=== PATIENT | female | born 1975 | race Caucasian/White ===

== ENCOUNTER 2017-11-28 11:42 | Emergency (ER) | payer MEDICAID, SELFPAY ==
[2017-11-28 11:43] VITALS: BP 159/97; PULSE 98; RESP 22; TEMP 36.6; O2SAT 98; BMI 38.3
--- NOTE | 2017-11-28 13:22 | EKG12_ITS ---
Test Reason : CP Blood Pressure : / mmHG Vent. Rate : 074 BPM Atrial Rate : 074 BPM P-R Int : 164 ms QRS Dur : 086 ms QT Int : 388 ms P-R-T Axes : 055 057 055 degrees QTc Int : 430 ms Normal sinus rhythm Normal ECG Confirmed by ROWDY JONES, CARLTON ([id number]), photo editor TAMMY LUNSFORD ([id number]) on 12/03/2017 3:52:04 PM Referred By: MARIANELA Confirmed By:CARLTON RENO MD
--- NOTE | 2017-11-28 13:22 | RAD_ITS ---
STUDY: X-RAY CHEST REASON FOR EXAM: Female, 42 years old. Chest pain. Shortness of breath. TECHNIQUE: PA and lateral views of the chest. COMPARISON: August 23, 2016 FINDINGS: The lungs are clear and expanded. There is no demonstrated pleural abnormality. Normal size heart. Normal mediastinum and vinay. Normal visualized pulmonary arteries. Normal visualized aortic arch and descending thoracic aorta. Normal visualized thoracic spine. Normal visualized ribs, clavicles, and shoulders. There are surgical clips in the right upper abdomen. RAD/Chest PA and Lateral IMPRESSION: Normal x-ray examination of the chest. Electronically Signed: Carmelo Correa MD at 15:15 EDT , Service support ,
--- NOTE | 2017-11-28 13:27 | ED.DCSUM_ITS ---
- ER Visit Summary Date of Service: 11/28/17 Chief Complaint: Left-sided chest pain with productive cough of sputum History of Present Illness: The patient is a 42 F chest pain. She does have production of sputum but really not complaining much of a cough. No history of DVT or PE. Her sisters had a prior PE. She is on estrogen therapy. She is a smoker. She has had no recent travel, surgery or immobilization. She has no known cardiac disease. No recent exertional dyspnea. No leg pain or swelling. The pain radiates straight through to her back on the left chest. Physical Examination: Middle-aged female. Vital signs are stable. She is afebrile. Her pulse ox is 90% room air no signs of hypoxia. She is not tachycardic. H EENT exam unremarkable. Neck nontender no lymphadenopathy. Lungs coarse breath sounds. Dry cough. No rales or rhonchi. Heart regular rhythm rate about 90 no murmur. Chest wall nontender. Abdomen soft nontender. Normal bowel sounds no peritoneal signs. She is moving all 4 extremities. They are neurovascularly intact. Calves are nontender. No edema or cords. Neurologically she is awake and alert. There is no reproducible back or chest wall tenderness. Test Results: EKG shows a sinus rhythm rate is 70 signs of ischemia. No S1, every 3 or T3. Chest x-ray no acute abnormality. Read both by myself and radiologist. CBC normal. White count 8. Normal hemoglobin. Electrolytes normal. Normal creatinine and gap. Troponin normal. D-dimer is elevated 1.39. Due to the elevated d-dimer and her chest pain and her risk factors a CTA of the chest was obtained. This showed no PE nor any dissection. Nor any other acute abnormality. Read by the radiologist. Reviewed by me. Emergency Department Course and Treatment: Atypical chest pain is not reproducible. This could be as simple as a viral URI. However with her pain and her family history she is going to undergo a cardiac workup and also evaluation for possible blood clot. Treatment Plan: Patient is doing better after the IV Toradol. She will be discharged home. Treated as a viral bronchitis with pleurisy. Prednisone as anti-inflammatory should and also to help her with wheezing. Disposition: Discharge Impression: Acute left-sided chest pain secondary to pleurisy and viral bronchitis This note was generated with [employer] software. It may contain incorrect words, spelling, and punctuation that were not noted in review of the chart prior to signing ED Disposition - Plan for ED Patient: Chief Complaint: Cough Referrals: Care Physician,No Primary [NON-STAFF] -
[2017-11-28] MEDS: Ketorolac 30 MG/ML Syringe IV (13:47)
[2017-11-28 13:53] VITALS: O2SAT 99
[2017-11-28 13:55] LABS: Absolute Lymphocyte Count 2.68 X10^3/ul (0.83-4.51); Absolute Neutrophil Count 4.7 X10^3/uL (2.0-7.7); Basophil# 0.02 X10^3/uL; Basophil% 0.2 % (0-1); Eosinophil# 0.14 X10^3/uL; Eosinophils% 1.7 % (0-5); Hematocrit 42.2 % (37-47); Hemoglobin 14.4 g/dl (12.0-15.0); Lymphocyte # 2.68 X10^3/ul (4.0); Mean Corp Hgb Conc 34.1 g/gl (32-36); Mean Corpuscular Hgb 30.8 pg (27.0-32.0); Mean Corpuscular Volume 90.4 fL (81-99); Monocyte# 0.59 X10^3/uL; Monocyte% 7.3 % (0-10); Neutrophil # 4.68 X10^3/uL (2.7-7.7); Neutrophil % 57.6 % (47-70); Platelet Count 123 K/mm3 (150-450); RBC Distribution Width CV 12.7 % (11.6-14.6); RBC Distribution Width SD 41.9 fl (35.1-43.9); Red Blood Count 4.67 M/mm3 (4.2-5.4); White Blood Count 8.1 K/mm3 (4.4-11.0)
[2017-11-28 13:56] LABS: POSITIVE COUNT NO; POSITIVE DIFFERENTIAL NO; POSITIVE MORPHOLOGY NO
[2017-11-28 14:09] VITALS: BP 110/68; PULSE 69; RESP 14; O2SAT 100
[2017-11-28 14:14] LABS: Anion Gap 5 (5-15); BUN 10 mg/dL (7-18); BUN/Creat Ratio 14.3 RATIO (10-20); Calcium,Total 8.6 mg/dL (8.5-10.1); Chloride 104 mmol/L (98-107); EST Glomerular Filtration Rate 97 mL/min (>60); Est Glom Filt Rate - Afr Amer 118 mL/min (>60); Estimated Creatinine Clearance 100.77 ml/min; Glucose 85 mg/dL (74-106); Potassium 3.7 mmol/L (3.5-5.1); Sodium Level 137 mmol/L (136-145)
[2017-11-28 14:20] LABS: D-Dimer Quantitative (DVT/PE) 1.39 FEU/ug/m (0.27-0.49)
--- NOTE | 2017-11-28 14:22 | CT_ITS ---
STUDY: CTA CHEST REASON FOR EXAM: Female, 42 years old. Chest pain. Shortness of breath. Elevated d-dimer RADIATION DOSAGE (If Supplied By Facility): CTDIvol = ( 17.79 ) mGy, DLP = ( 708.89 ) mGycm TECHNIQUE: The examination was performed with the intravenous administration of 100 ml of Isovue 370 contrast material. Post-processing of the angiographic images was performed, with multiplanar reformation and 3D reconstruction. Individualized dose optimization techniques were used for this CT. COMPARISON: Chest x-ray FINDINGS: Normal enhancement of the main pulmonary artery and right and left pulmonary arteries. There is limited enhancement of the bilateral peripheral pulmonary arteries. There is no demonstrated pulmonary embolism. Normal thoracic aorta and visualized great vessels. There is no demonstrated aortic dissection. There are calcifications of the coronary arteries. Normal mediastinum. Normal hilar regions. Normal visualized trachea and bronchi. The lungs are well expanded. Normal pulmonary parenchyma. Normal pleura. Normal chest wall structures. Normal osseous structures. There are surgical clips in the gallbladder fossa consistent with a prior cholecystectomy. There is splenomegaly. CT/CTA Chest W/WO Contrast IMPRESSION: CTA chest examination, without a demonstrated pulmonary embolism or arterial dissection. No focal infiltrate. Splenomegaly. Electronically Signed: Carmelo Correa MD at 15:24 EDT , Service support ,
--- NOTE | 2017-11-28 15:41 | ED.DEP ---
ED Disposition - Plan for ED Patient: Disposition: Home or Assisted Living Chief Complaint: Cough Instructions: Acute Bronchitis, ED Chest Pain Pleurisy Prescriptions: Prednisone [Deltasone] 40 mg PO DAILY 7 Days tab Referrals: Care Physician,No Primary [NON-STAFF] - Additional Instructions: You have a bronchitis with inflammation of the lung lining the cause of the pain. Currently on prednisone which will decrease the inflammation and improve the pain. ER cardiac workup was normal. The CAT scan of your chest showed no abnormalities and no blood clots.
[2017-11-28 16:03] VITALS: BP 125/83; PULSE 63; RESP 18; O2SAT 99
--- NOTE | 2017-11-29 10:07 | CM.ED ---
ED CALLBACK: Follow-up call to patient. Voicemail message states this phone number belongs to a different name than patient's.
== END 2017-11-28 16:04 | disposition home or self-care (01) ==
PROVIDERS: Emergency Provider Emergency Medicine; Family Provider Internal Medicine; PCP Internal Medicine
DX: J20.8 Acute bronchitis due to other specified organisms (principal); R09.1 Pleurisy; R74.9 Abnormal serum enzyme level, unspecified; K21.9 Gastro-esophageal reflux disease without esophagitis; Z72.0 Tobacco use; Z79.890 Hormone replacement therapy; Z79.899 Other long term (current) drug therapy
CPT/HCPCS: 71046; 71275; 80048; 84484; 85025; 85379; 93005; 96374; 99284; Q9967; A4216

== ENCOUNTER 2017-12-21 10:06 | Emergency (ER) | payer MEDICAID, SELFPAY ==
[2017-12-21 10:07] VITALS: BP 144/111; PULSE 90; RESP 18; TEMP 36; O2SAT 98; BMI 41.1
--- NOTE | 2017-12-21 10:56 | RAD_ITS ---
STUDY: X-RAY - LEFT KNEE REASON FOR EXAM: Female, 42 years old. Pain and swelling. No known injury. TECHNIQUE: 4 view(s) of the knee. COMPARISON: None. FINDINGS: Normal visualized distal femur. Normal visualized proximal tibia and fibula. Normal proximal tibiofibular articulation. There is mild degenerative arthrosis of the medial femorotibial compartment. Normal lateral femorotibial compartment. Normal patellofemoral articulation. Small joint effusion. RAD/Knee 4 or More Views IMPRESSION: Degenerative arthrosis. Small joint effusion. Electronically Signed: Gregory Hernandez MD at 11:16 EDT Tel [phone], Service support ,
--- NOTE | 2017-12-21 11:00 | ED.DCSUM_ITS ---
- ER Visit Summary Date of Service: 12/21/17 Chief Complaint: Left knee pain History of Present Illness: The patient is a [address] Hooks. She reports that she has left knee pain that began yesterday. She states that she has not worked for approximately 1 year and begin a new job at [employer] 2 weeks ago. 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 She does do some lifting with this. She has not been kneeling. She denies any other potential trauma. No fall or MVA. Patient reports that she has swelling in her left knee that began yesterday and is improved this morning after ibuprofen. She has an aching constant pain that is 7 out of 10 severity. She reports that sharp pain is 10 out of 10 with walking. On review of systems patient planes of a cough for the past 1-2 days that is nonproductive. She denies any fever or chills. No chest pain or shortness of breath. She denies any other complaints. Physical Examination: Vitals: Stable. Afebrile. General: Well-nourished and well-developed. Head: Normocephalic atraumatic. Neck: Supple, no lymphadenopathy. No JVD. Nontender. Cardiovascular: Regular rate and rhythm. No murmurs. Respiratory: No respiratory distress. Clear to auscultation bilaterally. Abdominal: Soft, nontender, nondistended, normal bowel sounds. No guarding, rebound, or peritoneal signs. Back: Nontender. Extremities: Mild diffuse tenderness palpation over her left knee that is worst on the medial side of this. She does have a moderate joint effusion. There is no overlying erythema or warmth to suggest a septic joint. She has good range of motion with minimal pain. She has no pain or ligamentous instability with anterior/posterior drawer or medial/lateral stress. There is no swelling of her leg distally. No calf tenderness. Skin: Normal color, no rash. Neurologic: Alert and oriented ?3. Cranial nerves II through XII are intact. Normal strength and sensation. Psych: Normal affect. Test Results: Left knee x-ray shows degenerative changes and a small joint effusion. Emergency Department Course and Treatment: Patient was treated with Tylenol. She refused stronger pain medications. She taken ibuprofen prior to arrival. Treatment Plan: Patient will be discharged with instructions to ice her knee and elevate her leg. Follow-up with Dr. Hooks and/or Dr. Wilson in 1 week if not improving. She instructed to use NSAIDs. Return to the emergency department for any worsening symptoms. Disposition: To home in improved and stable condition. Impression: 1. Left knee pain, acute. This note was generated with [employer] dictation software. It may contain incorrect words, spelling, and punctuation that were not noted in review of the chart prior to signing ED Disposition - Plan for ED Patient: Chief Complaint: Shortness of Breath Instructions: ED Meniscal Injury Knee Poss Referrals: Coty Hooks MD [Primary Care Provider] - 1 Week if not improving Jacky Wilson DO [STAFF PHYSICIAN] -
[2017-12-21] MEDS: Acetaminophen 500 MG Tablet 1000 MG PO (11:08)
[2017-12-21 11:58] VITALS: BP 130/90; PULSE 70; RESP 16; O2SAT 97
== END 2017-12-21 12:03 | disposition home or self-care (01) ==
LOC: ED 11:20
PROVIDERS: Emergency Provider Emergency Medicine; Family Provider Internal Medicine; PCP Internal Medicine
DX: M25.562 Pain in left knee (principal); M25.462 Effusion, left knee; R05 Cough; Z72.0 Tobacco use; Z79.899 Other long term (current) drug therapy
CPT/HCPCS: 73564; 99283

== ENCOUNTER 2018-02-17 08:15 | Emergency (ER) | payer MEDICAID, SELFPAY ==
[2018-02-17 08:17] VITALS: BP 123/95; PULSE 84; RESP 17; TEMP 36.7; O2SAT 98; BMI 39.0
--- NOTE | 2018-02-17 08:27 | RAD_ITS ---
STUDY: X-RAY CHEST REASON FOR EXAM: Female, 42 years old. Cough, congestion TECHNIQUE: PA and lateral views of the chest. COMPARISON: November 28, 2017 chest x-ray FINDINGS: The lungs are clear and expanded. There is no demonstrated pleural abnormality. Normal size heart. Normal mediastinum and vinay. Normal visualized pulmonary arteries. Normal visualized aortic arch and descending thoracic aorta. There is demineralization of the osseous structures. Normal visualized ribs, clavicles, and shoulders. There is no demonstrated abnormality of the visualized soft tissue structures of the upper abdomen. RAD/Chest PA and Lateral IMPRESSION: No demonstrated acute cardiopulmonary process. Electronically Signed: Barbara Benz MD at 9:55 EST Tel , Service support ,
--- NOTE | 2018-02-17 08:27 | EKG12_ITS ---
Test Reason : COUGH Blood Pressure : / mmHG Vent. Rate : 068 BPM Atrial Rate : 068 BPM P-R Int : 160 ms QRS Dur : 086 ms QT Int : 396 ms P-R-T Axes : 049 023 025 degrees QTc Int : 421 ms Normal sinus rhythm Possible Left atrial enlargement Borderline ECG Confirmed by IVAN JONES, BETY ([id number]), editor in chief TAMMY LUNSFORD ([id number]) on 02/20/2018 2:22:39 PM Referred By: YOLANDA Confirmed By:BETY LOVE MD
--- NOTE | 2018-02-17 08:31 | ED.DCSUM_ITS ---
- ER Visit Summary Date of Service: 02/17/18 Chief Complaint: Cough, abdominal pain History of Present Illness: The patient is a 42 F presents to the emergency department cough abdominal pain. The patient is a daily smoker. She states that she was diagnosed with bronchitis about a month ago. She feels that she never got over it. She does work outdoors. She states that she has had continued cough with productive sputum that is worsened over the past 2 or 3 days. She said pain in her right lower ribs into her right upper abdomen. She denies any nausea or vomiting. She denies any fevers or chills. She states at night, when she lays down, her cough gets worse. She has had productive sputum. She does continue to smoke. She does not think she is ever been diagnosed with COPD or asthma. Physical Examination: Vital signs reviewed General: Well-nourished, well-developed Head: Normocephalic, atraumatic Eyes: Pupils equal and reactive, extraocular muscles intact Neck, supple, no lymphadenopathy Heart: Regular rate and rhythm Respiratory: No distress, diminished with wheezing throughout Abdomen: Soft, mildly tender over the right lower lateral ribs, no definitive abdominal tenderness, nondistended, no peritoneal signs Back: Nontender Extremities: Nontender, no edema, no cords Skin: Normal color no rash Neuro: Alert and oriented, no focal or lateralizing deficits Test Results: [] Emergency Department Course and Treatment: The patient did have wheezing in all lung rosario. She was given nebulized breathing treatments, Toradol, and steroids. On reevaluation her symptoms are markedly improved. I did obtain screening labs which were relatively unremarkable. Her chest x-ray does not show any focal infiltrative process. The patient has had waxing and waning symptoms for a month. She does smoke and I do suspect she likely has underlying lung disease. She will be treated with doxycycline and prednisone. She was counseled on concerning symptoms and reasons to return. She will be discharged home. Treatment Plan: [] Disposition: Discharge Impression: 1. Acute bronchitis with bronchospasm This note was generated with [employer] software. It may contain incorrect words, spelling, and punctuation that were not noted in review of the chart prior to signing ED Disposition - Plan for ED Patient: Disposition: Home or Assisted Living Chief Complaint: Cough Instructions: ED Upper Resp Infec Abx Tx Prescriptions: Benzonatate [Tessalon Perle] 200 mg PO TID PRN PRN #20 cap PRN Reason: Cough RX: Prednisone [Deltasone] 40 mg PO DAILY #10 tab RX: Doxycycline 100 mg PO BID #20 cap Referrals: Coty Hooks MD [Primary Care Provider] -
[2018-02-17] MEDS: Ketorolac 30 MG/ML Syringe IV (08:41)
[2018-02-17] MEDS: MethylPREDNISolone 125 MG/2 ML Vial IV (08:41)
[2018-02-17] MEDS: 0.9% Normal Saline 1,000 ML 150 ML IV (08:41)
[2018-02-17] MEDS: Albuterol 2.5 MG/3 ML VIAL.NEB. INHALATION ×3 (08:44→08:45)
[2018-02-17] MEDS: Ipratropium/Albuterol Sulfate 3 ML AMPUL.NEB INHALATION (08:50)
[2018-02-17 08:51] VITALS: PULSE 75; RESP 16
[2018-02-17 08:56] LABS: Absolute Lymphocyte Count 2.64 X10^3/ul (0.83-4.51); Absolute Neutrophil Count 5.1 X10^3/uL (2.0-7.7); Basophil# 0.02 X10^3/uL; Basophil% 0.2 % (0-1); Eosinophil# 0.19 X10^3/uL; Eosinophils% 2.2 % (0-5); Hematocrit 43.6 % (37-47); Hemoglobin 14.6 g/dl (12.0-15.0); Lymphocyte # 2.64 X10^3/ul (4.0); Lymphocyte % 30.9 % (19-41); Mean Corp Hgb Conc 33.5 g/gl (32-36); Mean Corpuscular Volume 89.5 fL (81-99); Mean Platelet Vol. 11.3 fl (6.2-12.0); Monocyte# 0.55 X10^3/uL; Monocyte% 6.4 % (0-10); Neutrophil # 5.14 X10^3/uL (2.7-7.7); Neutrophil % 60.2 % (47-70); POSITIVE COUNT NO; POSITIVE DIFFERENTIAL NO; POSITIVE MORPHOLOGY NO; Platelet Count 122 K/mm3 (150-450); RBC Distribution Width CV 12.7 % (11.6-14.6); RBC Distribution Width SD 41.3 fl (35.1-43.9); Red Blood Count 4.87 M/mm3 (4.2-5.4); White Blood Count 8.6 K/mm3 (4.4-11.0)
[2018-02-17 09:30] LABS: AST(SGOT) 47 U/L (15-37); Alanine Aminotransfer ALT/SGPT 75 U/L (13-56); Albumin, Serum 3.7 g/dL (3.2-5.0); Alkaline Phosphatase 107 U/L (45-117); Anion Gap 5 (5-15); BUN 9 mg/dL (7-18); BUN/Creat Ratio 14.5 RATIO (10-20); Calcium,Total 8.5 mg/dL (8.5-10.1); Chloride 108 mmol/L (98-107); Creatinine, Serum 0.62 mg/dL (0.55-1.02); EST Glomerular Filtration Rate 112 mL/min (>60); Est Glom Filt Rate - Afr Amer 135 mL/min (>60); Estimated Creatinine Clearance 113.78 ml/min; Globulin 3.7 g/dL (2.2-4.2); Glucose 104 mg/dL (74-106); Potassium 3.9 mmol/L (3.5-5.1); Protein, Total 7.4 g/dL (6.4-8.2); Sodium Level 139 mmol/L (136-145)
[2018-02-17] MEDS: Benzonatate 100 MG Capsule 200 MG PO (09:44)
[2018-02-17] MEDS: Doxycycline 100 MG CAPSULE PO (09:44)
[2018-02-17 09:47] VITALS: BP 95/59; PULSE 92; RESP 16; O2SAT 97
== END 2018-02-17 09:49 | disposition home or self-care (01) ==
LOC: ED 08:31
PROVIDERS: Emergency Provider Emergency Medicine; Family Provider Internal Medicine; PCP Internal Medicine
DX: J20.9 Acute bronchitis, unspecified (principal); E66.9 Obesity, unspecified; K21.9 Gastro-esophageal reflux disease without esophagitis; F17.200 Nicotine dependence, unspecified, uncomplicated
CPT/HCPCS: 71046; 80053; 85025; 93005; 94640; 96361; 96374; 96375; 99285; J7030

== ENCOUNTER 2018-08-31 17:13 | Emergency (ER) | payer MEDICAID, SELFPAY ==
[2018-08-31 17:14] VITALS: BP 139/109; PULSE 70; RESP 18; TEMP 37; O2SAT 98; BMI 39.2
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
[2018-08-31 18:16] LABS: Anion Gap 3 (5-15); BUN 14 mg/dL (7-18); BUN/Creat Ratio 18.1 RATIO (10-20); Calcium,Total 8.8 mg/dL (8.5-10.1); Chloride 107 mmol/L (98-107); Creatinine, Serum 0.77 mg/dL (0.55-1.02); EST Glomerular Filtration Rate 86 mL/min (>60); Est Glom Filt Rate - Afr Amer 104 mL/min (>60); Estimated Creatinine Clearance 90.67 ml/min; Glucose 112 mg/dL (74-106); Potassium 3.6 mmol/L (3.5-5.1); Sodium Level 141 mmol/L (136-145)
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
[2018-08-31 19:30] VITALS: RESP 16
== END 2018-08-31 19:31 | disposition home or self-care (01) ==
PROVIDERS: Emergency Provider Emergency Medicine; Family Provider Internal Medicine; PCP Internal Medicine
DX: M54.2 Cervicalgia (principal); R42 Dizziness and giddiness; Y04.8XXA Assault by other bodily force, initial encounter; Y93.9 Activity, unspecified; Y92.9 Unspecified place or not applicable; Y99.9 Unspecified external cause status; E66.9 Obesity, unspecified; Z79.899 Other long term (current) drug therapy
CPT/HCPCS: 70450; 70491; 80048; 99285; Q9967; A4216

== ENCOUNTER → 2019-04-17 | Outpatient (CLI) | payer OTHER, SELFPAY ==
[2019-04-17] VITALS (10 sets, daily range): BP systolic 96–144; BP diastolic 41–94; PULSE 70–80; RESP 14–20; TEMP 37; O2SAT 92–98; BMI 37.3
--- NOTE | 2019-04-17 07:56 | US_ITS ---
PROCEDURE: Ultrasound Guided liver biopsy CLINICAL HISTORY: Female, 43 years old. US GUIDED LIVER BX - HEP C CONSENT: Yes Time-Out Called: Yes Consent form signed: YES PT-PTT Levels Checked: Yes SEDATION: Conscious sedation was utilized during this procedure and the patient was given 1 mg of Versed and 100 uCi of fentanyl IV titrated to the patient''s needs. Approximately 10 cc of 2% lidocaine was subcutaneously instilled prior to the performance of this procedure. TECHNIQUE: The procedure was explained to the patient including the complications of hemorrhage, liver laceration and infection. FINDINGS: A skin site was marked. After this approximately 10 cc of 2% lidocaine was subcutaneously instilled and soft tissues along the expected needle tract. A small skin incision was made and an 18 rosemary needle was coaxially inserted into the liver and 4 core biopsy specimens were obtained. These core biopsy specimens were placed on a Telfa pad which was then fixed in formalin and sent to laboratory for further analysis. After this, because of the patient''s borderline low platelets, a Gelfoam slurry was injected into the stylet portion of the coaxial needle set which was still within the liver as this needle was withdrawn. The patient was then rolled onto her right side over the bandage and good hemostasis was achieved with stable vital signs. POST PROCEDURE The patient was sent to recovery in good condition with stable vital signs and will remain there for 2 hours until the vital signs stabilize. US/Liver Biopsy Ultrasound IMPRESSION: An ultrasound directed liver biopsy was performed without incident and 4 core biopsy specimens were sent to pathology for further analysis. Electronically Signed: Nima Griffin, at 14:34 EST Tel , Service support ,
[2019-04-17 08:08] LABS: Platelet Count 128 K/mm3 (150-450)
[2019-04-17 08:33] LABS: International Normalized Ratio 1.1; Partial Thromboplast Time 27.2 Seconds (24.1-36.2); Prothrombin Time (Protime)PT. 14.2 SECONDS (11.7-14.9)
--- NOTE | 2019-04-17 09:30 | LIVB_PTH ---
PATIENT: JACY SANCHEZ LOC: [facility]#:[id number] AGE/SX: 43/F ROOM: RE04/17/[address]: Pina Wallace : 1975 BED: DIS: 04/17/2019 SPEC #: [id number] RECD: 04/17/19 10:26 STATUS: CYNDI REHope #: [id number] SHIV: 04/17/19 09:[address]: Pina Wallace DEPT: SURGICAL PATHOLOGY RECD BY: Cody Guido ENTERED: 04/17/19 10:39 SP TYPE: LIVER BX OTHR DR: Dr. Coty Hooks MD Tissues: Liver, NOS Procedures: PAS with Diastase (control) Trichrome (control) Special Stain Group II PAS Stain (control) Surgery Specimen Level V Retic (control) Iron Stain (control) HEADER OPERATION: Ultrasound-guided liver biopsy PRE-OP DIAGNOSIS: Hep C vs cirrhosis TISSUE SUBMITTED: Right liver MICROSCOPIC DIAGNOSIS Right liver, ultrasound-guided needle core biopsy: Chronic hepatitis, grade 3, stage 3 impending cirrhosis. Mild macrovesicular and microvesicular steatosis. See comment. AM:elly 04/18/19 COMMENT Sections show moderately inflamed necrosis and focal single cell necrosis. Trichrome stain with matched control reveals architectural distortion with broad band septal fibrosis and bridging. Iron stain with matched control does not reveal intraparenchymal deposition of iron. Reticulin with matched control reveals normal fatty trabecular architecture. PAS stain with and without diastase does not reveal accumulation of abnormal proteins. Clinical correlation is suggested. Case has been reviewed in consultation with Dr. Garnica who concurs with the above diagnosis. IDC:[id number] MICROSCOPIC DESCRIPTION Slides are reviewed. GROSS DESCRIPTION Received in fixative is one container labeled with the patient's name and designated liver biopsy. The specimen consists of seven elongated fragments of lemos soft tissue measuring 0.3 to 2 cm in length and 0.1 cm in diameter. The entire specimen is submitted in one cassette. / VERONIQUE:elly 04/17/19 TC:3 CPT: 73750, [id number] x5
[2019-04-17] MEDS: fentaNYL 100 MCG/2 ML Ampul IV ×3 (09:52→10:10)
[2019-04-17] MEDS: Midazolam 2 MG/2 ML Syringe IV (09:52)
== END | disposition home or self-care (01) ==
LOC: CT 07:46 → US 07:55
PROVIDERS: PCP Internal Medicine; Referring Provider Nurse Practitioner Adult Health; Visit Provider Nurse Practitioner Adult Health
DX: K74.69 Other cirrhosis of liver (principal); B18.2 Chronic viral hepatitis C
CPT/HCPCS: 47000; 36415; 76942; 85049; 85610; 85730; 88307; 88313; 99156; 99157; J7040; A4216

== ENCOUNTER 2021-01-11 09:30 | Emergency (ER) | payer MEDICAID, SELFPAY ==
[2021-01-11 09:31] VITALS: BP 170/131; PULSE 84; RESP 18; TEMP 36.6; O2SAT 99; BMI 32.8
[2021-01-11 09:42] VITALS: BP 158/84; PULSE 81; RESP 22; O2SAT 96
--- NOTE | 2021-01-11 09:44 | EKG12_ITS ---
Test Reason : CP Blood Pressure : / mmHG Vent. Rate : 073 BPM Atrial Rate : 073 BPM P-R Int : 154 ms QRS Dur : 092 ms QT Int : 388 ms P-R-T Axes : 071 046 051 degrees QTc Int : 427 ms Normal sinus rhythm Normal ECG Confirmed by ROWDY JONES, CARLTON ([id number]), publishing editor ELY YAÑEZ ([id number]) on 01/14/2021 7:07:02 AM Referred By: Confirmed By:CARLTON RENO MD
--- NOTE | 2021-01-11 09:50 | EDS_ITS ---
HPI History of Present Illness Chief Complaint: Chest Pain Informant: patient Narrative Narrative: 45-year-old female states for the past several days she has had a cough with yellow sputum production that is different than normal and last evening developed pain in the left side of her chest is worse with movement and deep breathing. She notes the chest is not particularly sore. No fevers. She states that she is a longtime smoker and has wheezed in the past. She is never had pulmonary function testing. She does not carry diagnosis of COPD/emphysema/chronic bronchitis. She notes her mother early of coronary artery disease and being the pain is on the left side of her chest became concerned. PFSH PFSH Medical History no medical history Home Medications estradiol 1 mg PO DAILY 11/28/17 [History Last Taken 04/16/19] buprenorphine-naloxone 1 film SL DAILY 08/31/18 [History Last Taken 04/16/19] ondansetron 4 mg PO Q12H PRN PRN 04/17/19 [History Last Taken 04/17/19] Allergy/AdvReac Type Severity Reaction Status Date / Time No Known Allergies Allergy Verified 01/11/21 09:34 Family History no significant family his Surgical History no surgical history Social History (Updated 01/11/21 @ 09:[address] Hugo Elizabeth, DO) Smoking Status: Current every day smoker tobacco type: cigarettes substance use type: does not use ROS ROS ED Constitutional Constitutional ED: Denies chills, fever(s) or weight loss Eyes Eyes: Denies change in vision or diplopia ENT ENT ED: Reports rhinorrhea; Denies ear pain or sore throat Cardiovascular Cardiovascular: Reports chest pain; Denies orthopnea, palpitations or racing heartbeat Respiratory/Chest Respiratory/Chest: Reports cough, dyspnea and sputum; Denies orthopnea Gastrointestinal Gastrointestinal: Denies abdominal pain, diarrhea, nausea or vomiting Genitourinary Genitourinary ED: Denies dysuria, hematuria or urinary frequency Musculoskeletal Musculoskeletal: Denies arthralgias or myalgias Integumentary Denies abscess or rash Neurologic Neurologic: Denies headache(s) or weakness Psychiatric Psychiatric: Denies anxiety, depression, suicidal ideation or suicidal thoughts Endocrine Endocrinology: Denies polydipsia, polyphagia or polyuria Allergic/Immunologic Allergic/Immunologic ED: Denies mouth swelling, tongue swelling or urticaria EXAM Physical Exam Const Vital Signs: 01/11/21 09:31 01/11/21 09:42 01/11/21 09:58 Temperature 98 F Temperature Source Temporal Pulse Rate 84 81 68 Respiratory Rate 18 22 H 17 Respiratory Pattern Normal Blood Pressure 170/131 H 158/84 H Blood Pressure Mean 144 108 Pulse Ox 99 96 Oxygen Delivery Method Room Air Room Air 01/11/21 10:44 Temperature 96.9 F L Temperature Source Temporal Pulse Rate 66 Respiratory Rate 18 Respiratory Pattern Blood Pressure 140/86 H Blood Pressure Mean 104 Pulse Ox 97 Oxygen Delivery Method Room Air Positive well nourished and well developed General Appearance ED: well developed HEENT Reports normocephalic, head/scalp atraumatic, TM's clear and moist mucous membranes normocephalic and atraumatic Tympanic Membrane ED: Yes TM's clear Eyes PERRL and EOMs intact bilaterally Neck no lymphadenopathy, supple and no JVD Resp normal respiratory effort Auscultation: rhonchi and wheezes Cardio regular rate, regular rhythm and no murmurs GI normal to inspection, nondistended, normoactive bowel sounds and non-tender Palpation: soft Back/Spine no CVA tenderness and normal ROM Extremity normal to inspection General Extremety ED: Negative for edema General Extremity: Negative for edema Neuro oriented x3 and CN's II-XII intact bilaterally Sensorium / Orientation: alert Motor Exam: strength 5/5 throughout Psych mental status grossly normal Mood & Affect: Negative for depressed or tearful Skin no rashes or lesions noted and no wounds MDM MDM MDM Narrative Medical decision making narrative: Patient received Toradol. White count 7.9. Troponin of 13. BMP is normal. Patient's D-dimer is 1.19. CTA of the chest showed no pulmonary embolism. Right middle lobe bronchial wall thickening with peribronchial atelectasis/infiltrate. Patient received Solu-Medrol and breathing treatments. She feels that her phlegm is loosening in her chest. She has a nebulizer machine at home but no solution. I will place her on prednisone albuterol and doxycycline. I am also going to refer her to pulmonology as she most likely has underlying lung disease. Lab Data Attestation: I reviewed the patient's lab results. Labs: Laboratory Results - last 24 hr 01/11/21 01/11/21 01/11/21 09:43 09:43 09:43 WBC 7.9 RBC 4.66 Hgb 13.9 Hct 40.7 MCV 87.3 MCH 29.8 MCHC 34.2 RDW Std Deviation 41.6 RDW Coeff of [place] 13.1 Plt Count 120 L MPV 11.4 Immature Gran % (Auto) 0.300 Neut % (Auto) 51.2 Lymph % (Auto) 38.0 [place] % (Auto) 7.8 Eos % (Auto) 2.2 Baso % (Auto) 0.5 Absolute Neuts (auto) 4.1 Absolute Lymphs (auto) 3.00 Nucleated RBC % 0 D-Dimer Quant (PE/DVT) 1.19 H* Sodium 139 Potassium 3.1 L Chloride 105 Carbon Dioxide 32.0 Anion Gap 2 L BUN 9 Creatinine 0.75 Estim Creat Clear Calc 91.15 Est GFR (MDRD) Af Amer 106 Est GFR (MDRD) Non-Af 88 BUN/Creatinine Ratio 12.0 Glucose 113 H Calcium 8.8 Troponin I High Sens 13 Radiography Diagnostic Testing: Clinical Impression(s) from Imaging Studies Chest CTA 01/11/21 10:10 IMPRESSION: 1. No central or segmental pulmonary embolism. 2. Mild bilateral lower lobe atelectasis. 3. Right middle lobe bronchial wall thickening with peribronchial atelectasis or infiltrate. Electronically Signed: José Miguel Maldonado MD ([place]) at 10:43 EST , Service support , EKG Initial EKG: Attestation: I personally reviewed and interpreted this EKG as follows: Comments: Normal sinus rhythm with a ventricular rate of 73 bpm Discharge Plan Triage Chief Complaint: Chest Pain ED Provider: Hugo Elizabeth Dx/Rx/DC Orders Prescriptions: No Action estradiol 1 MG tablet 1 mg PO DAILY RF: 0 buprenorphine-naloxone 1 EACH film 1 film SL DAILY RF: 0 ondansetron 4 MG tablet 4 mg PO Q12H PRN PRN (Reason: Nausea) RF: 0 Primary Care Provider: Coty Hooks Referrals: Coty Hooks MD [Primary Care Provider] -
[2021-01-11] MEDS: Ipratropium/Albuterol Sulfate 3 ML AMPUL.NEB INHALATION (09:55)
[2021-01-11] MEDS: Albuterol 2.5 MG/3 ML VIAL.NEB. INHALATION (09:55)
[2021-01-11] MEDS: MethylPREDNISolone 125 MG/2 ML Vial IV (09:57)
[2021-01-11 09:58] VITALS: PULSE 68; RESP 17
[2021-01-11 09:59] LABS: Absolute Neutrophil Count 4.1 X10^3/uL (2.0-7.7); Basophil# 0.04 X10^3/uL; Basophil% 0.5 % (0-1); Eosinophil# 0.17 X10^3/uL; Eosinophils% 2.2 % (0-5); Hematocrit 40.7 % (37-47); Hemoglobin 13.9 g/dL (12.0-15.0); Mean Corp Hgb Conc 34.2 g/dL (32-36); Mean Corpuscular Hgb 29.8 pg (27.0-32.0); Mean Corpuscular Volume 87.3 fL (81-99); Mean Platelet Vol. 11.4 fl (6.2-12.0); Monocyte# 0.62 X10^3/uL; Monocyte% 7.8 % (0-10); NRBC Flagged by Analyzer 0 % (0-5); Neutrophil # 4.05 X10^3/uL (2.7-7.7); Neutrophil % 51.2 % (47-70); Platelet Count 120 K/mm3 (150-450); RBC Distribution Width CV 13.1 % (11.6-14.6); RBC Distribution Width SD 41.6 fl (35.1-43.9); Red Blood Count 4.66 M/mm3 (4.2-5.4); White Blood Count 7.9 K/mm3 (4.4-11.0)
[2021-01-11 10:08] LABS: Anion Gap 2 (5-15); BUN 9 mg/dL (7-18); Calcium,Total 8.8 mg/dL (8.5-10.1); Chloride 105 mmol/L (98-107); Creatinine, Serum 0.75 mg/dL (0.55-1.02); EST Glomerular Filtration Rate 88 mL/min (>60); Est Glom Filt Rate - Afr Amer 106 mL/min (>60); Estimated Creatinine Clearance 91.15 ml/min; Glucose 113 mg/dL (74-106); Potassium 3.1 mmol/L (3.5-5.1); Sodium Level 139 mmol/L (136-145); Troponin-I HS 13 pg/mL (3.0-54.0)
[2021-01-11 10:09] LABS: D-Dimer Quantitative (DVT/PE) 1.19 FEU/ug/m (0.27-0.49)
--- NOTE | 2021-01-11 10:10 | CT_ITS ---
STUDY: CTA CHEST REASON FOR EXAM: Female, 45 years old. chest pain RADIATION DOSAGE (If Supplied By Facility): CTDIvol = ( 14.91 ) mGy, DLP = ( 560.65 ) mGycm TECHNIQUE: The examination was performed with the intravenous administration of IV 100mL Isovue-370. Post-processing of the angiographic images was performed, with multiplanar reformation and 3D reconstruction. Individualized dose optimization techniques were used for this CT. COMPARISON: None. FINDINGS: Normal enhancement of the main pulmonary artery and right and left pulmonary arteries. Normal enhancement of the bilateral peripheral pulmonary arteries. There is no demonstrated pulmonary embolism. Normal thoracic aorta and visualized great vessels. There is no demonstrated aortic dissection. Normal heart and pericardium. Normal mediastinum. Normal hilar regions. Normal visualized trachea and bronchi. Mild atelectasis of the medial right middle lobe peribronchial opacity and bronchial wall thickening. Atelectasis in the bilateral lower lobes. No cavitating process. Normal pleura. Normal chest wall structures. There are degenerative changes of thoracic spine. Spleen is enlarged measuring [address]/CTA Chest W/WO Contrast IMPRESSION: 1. No central or segmental pulmonary embolism. 2. Mild bilateral lower lobe atelectasis. 3. Right middle lobe bronchial wall thickening with peribronchial atelectasis or infiltrate. Electronically Signed: José Miguel Maldonado MD ([place]) at 10:43 EST , Service support ,
[2021-01-11] MEDS: Ketorolac 30 MG/ML Syringe IV (10:16)
[2021-01-11 10:44] VITALS: BP 140/86; PULSE 66; RESP 18; TEMP 36.1; O2SAT 97
[2021-01-11 11:16] VITALS: BP 132/81; PULSE 61; RESP 18; TEMP 36.8; O2SAT 96
== END 2021-01-11 11:18 | disposition home or self-care (01) ==
PROVIDERS: Emergency Provider Emergency Medicine; PCP Internal Medicine
DX: R07.9 Chest pain, unspecified (principal); F17.210 Nicotine dependence, cigarettes, uncomplicated
CPT/HCPCS: 71275; 80048; 84484; 85025; 85379; 87426; 93005; 94640; 96374; 96375; 99284; Q9967; A4216

== ENCOUNTER 2021-06-18 22:59 | Emergency (ER) | payer MEDICAID, SELFPAY ==
[2021-06-18 22:59] VITALS: BP 111/85; PULSE 83; RESP 15; TEMP 36; O2SAT 97; BMI 25.0
--- NOTE | 2021-06-18 23:01 | RAD_ITS ---
EXAM: XR LEFT HAND COMPLETE, 3 OR MORE VIEWS CLINICAL INDICATION: INJURY TECHNIQUE: Frontal, lateral and oblique views of the left hand. This report was created using [employer] report generation technology. COMPARISON: None. FINDINGS: BONES/JOINTS: Unremarkable. No acute fracture. No subluxation. Normal alignment. Preservation of the joint space. No sclerotic or destructive changes observed. SOFT TISSUES: Unremarkable. No soft tissue swelling or gas. No radiopaque foreign body. RAD/Hand Min 3 Views IMPRESSION: Negative left hand x-rays. Electronically Signed: Shu Andrade MD at 23:20 EDT ,
--- NOTE | 2021-06-18 23:34 | EX.ED.UPPERE ---
HPI History of Present Illness Chief Complaint: Upper Extremity Injury Informant: patient Narrative Narrative: Patient was letting her baby dog out of its cage when she backed up and then fell forward after tripping on something. She injured the dorsum of her left hand. She notes swelling along the 345 metacarpal. No other injuries. She was able to remove her rings. PFSH PFSH Home Medications estradiol 1 mg PO DAILY 11/28/17 [History Last Taken 04/16/19] buprenorphine-naloxone 1 film SL DAILY 08/31/18 [History Last Taken 04/16/19] ondansetron 4 mg PO Q12H PRN PRN 04/17/19 [History Last Taken 04/17/19] albuterol sulfate 2.5 mg INHALATION Q4H PRN #25 vial 01/11/21 [Rx Last Taken Unknown] doxycycline monohydrate 100 mg PO BID #20 capsule 01/11/21 [Rx Last Taken Unknown] ketorolac 10 mg PO Q8H PRN 5 Days #15 tab 01/11/21 [Rx Last Taken Unknown] prednisone 60 mg PO DAILY #15 tablet 01/11/21 [Rx Last Taken Unknown] Allergy/AdvReac Type Severity Reaction Status Date / Time No Known Allergies Allergy Verified 06/18/21 23:01 Social History Smoking Status: Current every day smoker tobacco type: cigarettes substance use type: does not use ROS ROS ED Constitutional Constitutional ED: Denies chills, fever(s) or weight loss Eyes Eyes: Denies change in vision or diplopia ENT ENT ED: Denies ear pain, rhinorrhea or sore throat Cardiovascular Cardiovascular: Denies chest pain, orthopnea, palpitations or racing heartbeat Respiratory/Chest Respiratory/Chest: Denies cough, dyspnea or orthopnea Gastrointestinal Gastrointestinal: Denies abdominal pain, diarrhea, nausea or vomiting Genitourinary Genitourinary ED: Denies dysuria, hematuria or urinary frequency Musculoskeletal Musculoskeletal: Reports other Details: See history of present illness ; Denies arthralgias or myalgias Integumentary Denies abscess or rash Neurologic Neurologic: Denies headache(s) or weakness Psychiatric Psychiatric: Denies anxiety, depression, suicidal ideation or suicidal thoughts Endocrine Endocrinology: Denies polydipsia, polyphagia or polyuria Allergic/Immunologic Allergic/Immunologic ED: Denies mouth swelling, tongue swelling or urticaria EXAM Physical Exam Const Vital Signs: 06/18/21 22:59 Temperature 96.8 F L Temperature Source Temporal Pulse Rate 83 Respiratory Rate 15 Blood Pressure 111/85 H Blood Pressure Mean 93 Pulse Ox 97 Oxygen Delivery Method Room Air Positive well nourished and well developed General Appearance ED: well developed HEENT Reports normocephalic, head/scalp atraumatic and moist mucous membranes normocephalic and atraumatic Eyes PERRL and EOMs intact bilaterally Neck no lymphadenopathy, supple and no JVD Resp normal respiratory effort and clear to auscultation bilaterally Cardio regular rate, regular rhythm and no murmurs GI normal to inspection, nondistended, normoactive bowel sounds and non-tender Palpation: soft Back/Spine no CVA tenderness and normal ROM Extremity Extremity Narrative: Patient has tenderness to palpation swelling and some mild ecchymosis over the dorsum of the left hand along the long ring and little fingers. Neurovascular intact. No malrotation. General Extremety ED: Negative for edema General Extremity: Negative for edema Neuro oriented x3 and CN's II-XII intact bilaterally Sensorium / Orientation: alert Motor Exam: strength 5/5 throughout Psych mental status grossly normal Mood & Affect: Negative for depressed or tearful Skin no rashes or lesions noted and no wounds MDM MDM MDM Narrative Medical decision making narrative: My interpretation of the plain films of the left hand is no acute fracture. Patient will be discharged home with supportive care instructions for rest ice Motrin. Return if worsening or concerns Radiography Diagnostic Testing: Clinical Impression(s) from Imaging Studies Hand X-Ray 06/18/21 23:01 IMPRESSION: Negative left hand x-rays. Electronically Signed: Shu Andrade MD at 23:20 EDT , Discharge Plan Triage Chief Complaint: Upper Extremity Injury ED Provider: Hugo Elizabeth Dx/Rx/DC Orders Clinical Impression: Contusion of hand, left, Fall Instructions: ED Hand Contusion Prescriptions: No Action estradiol 1 MG tablet 1 mg PO DAILY RF: 0 buprenorphine-naloxone 1 EACH film 1 film SL DAILY RF: 0 ondansetron 4 MG tablet 4 mg PO Q12H PRN PRN (Reason: Nausea) RF: 0 albuterol sulfate 2.5 MG/3 ML solution for nebulization 2.5 mg inhalation Q4H PRN Qty: 25 RF: 0 prednisone 20 MG tablet 60 mg PO DAILY Qty: 15 RF: 0 ketorolac 10 mg tablet 10 mg PO Q8H PRN (Reason: pain) 5 Days Qty: 15 RF: 0 doxycycline monohydrate 100 MG capsule 100 mg PO BID Qty: 20 RF: 0 Primary Care Provider: Coty Hooks Referrals: Coty Hooks MD [Primary Care Provider] - 10-14 Days if not better Disposition Disposition: Home, Self Care
== END 2021-06-18 23:42 | disposition home or self-care (01) ==
PROVIDERS: Emergency Provider Emergency Medicine; PCP Internal Medicine; Visit Provider Emergency Medicine
DX: S60.222A Contusion of left hand, initial encounter (principal); F17.210 Nicotine dependence, cigarettes, uncomplicated; W01.0XXA Fall on same level from slipping, tripping and stumbling without subsequent striking against object, initial encounter; Y93.K9 Activity, other involving animal care; Y99.9 Unspecified external cause status; Y92.9 Unspecified place or not applicable; Z79.899 Other long term (current) drug therapy; Z79.52 Long term (current) use of systemic steroids
CPT/HCPCS: 73130; 99282

== ENCOUNTER 2023-11-10 17:46 | Emergency (ER) | payer MEDICAID, SELFPAY ==
[2023-11-10 17:49] VITALS: TEMP 36.9; BMI 28.6
[2023-11-10 17:51] VITALS: BP 134/95; PULSE 83; RESP 16; TEMP 36.9; O2SAT 98
--- NOTE | 2023-11-10 18:22 | EDS_ITS ---
HPI History of Present Illness Chief Complaint: Allergic Reaction Detail of Chief Complaint: Patient thinks she swallowed a bee and got stung in her throat. Informant: patient Onset/Context/Timing Onset: Today Context: Sudden Onset Timing: Continuous Current Severity: Moderate Maximum Severity: Moderate Narrative Narrative: 48-year-old female was drinking a soda which seems to be fluid in the cup and she swallowed and stung her throat. Planing of sore throat trouble speaking. She is never had a bad allergic reaction before. Said this all started about an hour ago. She is brought by squad. Prior similar symptoms: No Recent Illness/Hospitalization: No PFSH PFSH Medical History no medical history no medical history Home Medications ?Medication ?Instructions ?Recorded ?Last Taken ?Type estradiol 1 mg tablet 1 mg PO DAILY 11/28/17 04/16/19 History buprenorphine 8 mg-naloxone 2 mg 1 film SL DAILY 08/31/18 04/16/19 History sublingual film ondansetron 4 mg disintegrating 4 mg PO Q12H PRN PRN Nausea 04/17/19 04/17/19 History tablet albuterol sulfate 2.5 mg/3 mL 2.5 mg (3 mL) inhalation Q4H PRN 01/11/21 Unknown Rx (0.083 %) solution for nebulization #25 vials doxycycline monohydrate 100 mg 100 mg PO BID #20 CAPSULES 01/11/21 Unknown Rx capsule ketorolac 10 mg tablet 10 mg PO Q8H PRN pain 5 days #15 01/11/21 Unknown Rx tabs prednisone 20 mg tablet 60 mg (3 x 20 mg) PO DAILY #15 01/11/21 Unknown Rx TABLETS Allergy/AdvReac Type Severity Reaction Status Date / Time No Known Allergies Allergy Verified 11/10/23 17:51 Social History Smoking Status: Current every day smoker tobacco type: cigarettes substance use type: does not use ROS ROS ED ROS Narrative Denies recent illness. Constitutional Constitutional ED: Denies chills or fever(s) Eyes Eyes: Denies blurry vision ENT ENT ED: Reports sore throat; Denies ear pain Cardiovascular Cardiovascular: Denies chest pain Respiratory/Chest Respiratory/Chest: Denies cough or dyspnea Gastrointestinal Gastrointestinal: Denies abdominal pain Genitourinary Genitourinary ED: Denies dysuria or hematuria Musculoskeletal Musculoskeletal: Denies arthralgias Integumentary Denies abscess Neurologic Neurologic: Denies headache(s) Psychiatric Psychiatric: Denies anxiety or depression Endocrine Endocrinology: Denies cold intolerance Hematologic/Lymphatic Hematologic/Lymphatic: Reports none Allergic/Immunologic Allergic/Immunologic ED: Denies mouth swelling, tongue swelling or urticaria EXAM Physical Exam Narrative Exam Narrative: 48-year-old female vital signs stable afebrile. Pulse ox 98% on room air no signs of pox. H EENT exam. Rapid Actilite. Lips and tongue are not swollen. Posterior pharynx is normal. Neck nontender. Trachea midline. Lungs clear to auscultation bilaterally. Heart regular rhythm no murmur. She does have a hoarse sounding voice. Currently no stridor. Abdomen soft nontender. Moving all 4 extremities. Skin no petechiae or purpura. No rashes or hives. She is awake and alert. No focal motor deficits. Const Vital Signs: 11/10/23 17:49 11/10/23 17:51 11/10/23 19:48 Temperature 98.4 F 98.4 F Temperature Source Oral Oral Pulse Rate 83 78 Respiratory Rate 16 16 Blood Pressure 134/95 H 132/85 H Blood Pressure Mean 108 100 Pulse Ox 98 98 Oxygen Delivery Method Room Air Room Air Positive well nourished and well developed; Negative for cachectic, contractures or unkempt General Appearance ED: well developed and NAD; Negative for unkempt, cachectic, contractures, cyanotic, diaphoretic or pallor Nutritional Appearance: Negative for cachectic HEENT Reports moist mucous membranes Negative for trauma or tenderness Eyes PERRL and EOMs intact bilaterally General Eye ED: Negative for pale conjunctiva or scleral icterus Neck no lymphadenopathy, supple and no JVD General: Negative for tenderness Lymph Lymphatic: Negative for other Chest Wall inspection of chest normal and palpation of chest normal Chest: Negative for other Resp normal respiratory effort and clear to auscultation bilaterally Effort and Inspection: Negative for retractions Auscultation: Negative for rales, rhonchi or wheezes Cardio regular rhythm, S1 normal heart sound, S2 normal heart sound and no murmurs GI normal to inspection, nondistended, normoactive bowel sounds, non-tender, non- distended and no masses Palpation: soft; Negative for tender, guarding or rebound tenderness present Back/Spine no CVA tenderness Extremity normal to inspection General Extremety ED: Negative for edema or tenderness General Extremity: Negative for edema Neuro oriented x3 and CN's II-XII intact bilaterally Sensorium / Orientation: alert; Negative for orientation impaired, lethargic or stuporous Motor Exam: strength 5/5 throughout Psych mental status grossly normal Appearance: Negative for unkempt Skin no rashes or lesions noted, no wounds and skin turgor normal General Skin Exam: Negative for jaundice or pallor Lesions: No lesion noted Rashes: No rashes noted Trauma: Negative for abrasion Wounds: Negative for wounds noted MDM MDM MDM Narrative Medical decision making narrative: 48-year-old female no seen past medical history. No cardiac history. Thinks she swallowed a bee and it stung her in the inside of her throat. She is having trouble speaking. I suspect that the swelling is deeper White cannot visualize it. She will be given a IV Benadryl and Solu-Medrol. Subcu epinephrine and watched closely. Repeat exam patient is doing well at 8:57 PM. Voice is improving. She is in no distress. She is laying flat in the bed no trouble breathing or swallowing. Resting comfortably. I had to wake her for the last evaluation. Patient be discharged to home. Use Benadryl for any reaction. Discharge Plan Triage Chief Complaint: Allergic Reaction ED Provider: Gilberto Reardon Dx/Rx/DC Orders Clinical Impression: Allergic reaction to bee sting Instructions: ED Insect Sting, Local Reaction Prescriptions: No Action estradiol 1 MG tablet 1 mg PO DAILY buprenorphine-naloxone 1 EACH film 1 film SL DAILY Patient Comments: DISSOLVE one AND A one half films UNDER THE TONGUE EVERY DAY ondansetron 4 MG tablet 4 mg PO Q12H PRN PRN (Reason: Nausea) albuterol sulfate 2.5 MG/3 ML solution for nebulization 2.5 mg inhalation Q4H PRN Qty: 25 0RF Rx Instructions: Use q4 hours and PRN for wheezing prednisone 20 MG tablet 60 mg PO DAILY Qty: 15 0RF ketorolac 10 mg tablet 10 mg PO Q8H PRN (Reason: pain) 5 Days Qty: 15 0RF doxycycline monohydrate 100 MG capsule 100 mg PO BID Qty: 20 0RF Primary Care Provider: Coty Hooks Referrals: Coty Hooks MD [Primary Care Provider] - As Needed Activity Restrictions/Additional Instructions: Benadryl as needed. Follow-up with your doctor as needed. Return if worse. Print Language: Bangladeshi Disposition Disposition: Home, Self Care
[2023-11-10] MEDS: DiphenhydrAMINE 50 MG/ML Syringe IV (18:35)
[2023-11-10] MEDS: MethylPREDNISolone 125 MG/2 ML Vial IV (18:35)
[2023-11-10] MEDS: Epi Pen (EQUIV) 0.3 MG Syringe IM (18:35)
[2023-11-10 19:48] VITALS: BP 132/85; PULSE 78; RESP 16; O2SAT 98
[2023-11-10 21:00] VITALS: BP 142/69; PULSE 84; RESP 16; TEMP 36.1; O2SAT 97
== END 2023-11-10 21:03 | disposition home or self-care (01) ==
PROVIDERS: Emergency Provider Emergency Medicine; PCP Internal Medicine; Visit Provider Emergency Medicine
DX: T63.441A Toxic effect of venom of bees, accidental (unintentional), initial encounter (principal); F17.210 Nicotine dependence, cigarettes, uncomplicated
CPT/HCPCS: 96374; 96375; 99283; A4216